=== PATIENT | male | born 1965 | race Caucasian/White ===

== ENCOUNTER → 2016-07-29 | Outpatient (CLI) | payer OTHER | LOC: KOH-I 14:30 | DX: M54.12 Radiculopathy, cervical region (principal); M54.2 Cervicalgia | CPT/HCPCS: 72050 ==

== ENCOUNTER 2020-07-04 08:29 | Emergency (ER) | payer OTHER ==
[2020-07-04 09:19] LABS: HEMOGLOBIN 17.2 gm/dl (14.0-17.5); RED BLOOD COUNT 5.46 M/UL (4.20-5.50); WHITE BLOOD COUNT 8.3 K/UL (4.5-11.0)
[2020-07-04 09:49] LABS: BUN/CREATININE RATIO 21 (0-10)
== END 2020-07-04 12:40 | disposition home or self-care (01) ==
LOC: ER1 08:29
PROVIDERS: Emergency Medicine
DX: T58.11XA Toxic effect of carbon monoxide from utility gas, accidental (unintentional), initial encounter (principal)
CPT/HCPCS: 36415; 36600; 71045; 80053; 82550; 82553; 82805; 83874; 84484; 85025; 93005; 99285

== ENCOUNTER → 2021-02-09 | Outpatient (CLI) | payer OTHER | LOC: RT 12:07 | DX: R53.83 Other fatigue (principal); Z91.89 Other specified personal risk factors, not elsewhere classified | CPT/HCPCS: 36600; 82803 ==